=== PATIENT | male | born 1985 | race Two or more races ===

== ENCOUNTER 2023-08-08 16:50 | Emergency (ER) | payer BC ==
[2023-08-08 16:55] VITALS: BP 127/84; PULSE 79; RESP 18; TEMP 98; BMI 42.1
[2023-08-08] MEDS ORDERED: LIDOCAINE VISCOUS 2% ORAL/TOP 15 ML UNIT-DOSE CUP MM ONE (18:21)
[2023-08-08] MEDS ORDERED: ACETAMINOPHEN 500 MG TABLET (FP) PO ONE (18:21)
[2023-08-08] MEDS ORDERED: AMOX TR/POT CLAV 875MG/125MG TABLETS (FP) PO ONE (18:21)
[2023-08-08] MEDS ORDERED: AMOX TR/POT CLAV 875MG/125MG TABLETS (FP) ONE (18:24)
[2023-08-08] MEDS ORDERED: ACETAMINOPHEN 500 MG TABLET (FP) ONE (18:24)
== END 2023-08-08 19:03 | disposition home or self-care (01) ==
LOC: JER 16:50 → JERFT 16:50
DX: K05.10 Chronic gingivitis, plaque induced (principal); K06.9 Disorder of gingiva and edentulous alveolar ridge, unspecified
CPT/HCPCS: 99283-25

== ENCOUNTER 2023-10-07 13:44 | Emergency (ER) | payer BC ==
[2023-10-07 14:10] VITALS: BP 113/75; PULSE 69; RESP 18; TEMP 97.3; BMI 41.6
[2023-10-07] MEDS ORDERED: predniSONE 20 MG TABLET (UD) PO ONE (14:39)
[2023-10-07] MEDS ORDERED: CYCLOBENZAPRINE HCL 10 MG TABLET (FP) PO ONE (14:39)
[2023-10-07] MEDS ORDERED: CYCLOBENZAPRINE HCL 10 MG TABLET (FP) ONE (14:49)
[2023-10-07] MEDS ORDERED: predniSONE 10 MG TABLET (UD) ONE (14:49)
[2023-10-07] MEDS ORDERED: predniSONE 20 MG TABLET (UD) ONE (14:49)
== END 2023-10-07 16:59 | disposition home or self-care (01) ==
LOC: JERFT 13:44
DX: M54.50 Low back pain, unspecified (principal); M79.605 Pain in left leg; M51.36 Other intervertebral disc degeneration, lumbar region
CPT/HCPCS: 72131-TC; 99284-25

== ENCOUNTER 2024-03-28 20:03 | Inpatient (IN) | payer BC ==
[2024-03-28] MEDS ORDERED: morphine SULFATE 4 MG/ML VIAL ONE ×3 (21:17→23:42)
[2024-03-28 21:30] LABS: BASO % 0.5 % (0-2.0); EOS % 0.8 % (0-4.5); HEMATOCRIT 44.3 % (35.4-49); HEMOGLOBIN 14.7 GM/dL (11.7-16.9); LYMPH % 23.8 % (8-40); MCH 25.7 pg (25.7-33.7); MCHC 33.2 g/dl (32.0-35.9); MEAN CELL VOLUME 77.5 fl (80-96); MEAN PLT VOLUME 7.4 fl (7.5-11.1); MONO % 5.5 % (3.8-10.2); NEUT % 69.4 % (42.8-82.8); PLATELET COUNT 226 10^3/uL (134-434); RBC 5.72 M/mm3 (4.00-5.60); RDW 14.8 % (11.9-15.9); WHITE BLOOD COUNT 8.7 K/mm3 (4.0-10.0)
[2024-03-28] MEDS: LACTATED RINGERS SOLUTION 1,000 ML/1,000 ML INFUS.BAG IV STA (21:32)
[2024-03-28 21:38] LABS: INR 1.12 (0.83-1.09); PROTHROMBIN TIME (PATIENT) 12.6 SEC (9.7-13.0)
[2024-03-28 21:41] LABS: ACTIVATED PTT 34.2 SECONDS (25.2-36.5)
[2024-03-28] MEDS: morphine SULFATE 4 MG/ML VIAL IVPUSH ONE (21:45)
[2024-03-28 21:50] LABS: POTASSIUM 4.3 mmol/L (3.5-5.1)
[2024-03-28 21:52] LABS: ALBUMIN 3.6 g/dl (3.4-5.0); BLOOD UREA NITROGEN 10.6 mg/dL (7-18); CALCIUM 9.1 mg/dL (8.5-10.1)
[2024-03-28 21:57] LABS: BILIRUBIN,TOTAL 0.3 mg/dL (0.2-1); TOT PROT 7.5 g/dl (6.4-8.2)
[2024-03-28 22:15] LABS: LACTIC ACID 2.3 mmol/L (0.4-2.0)
[2024-03-28] MEDS ORDERED: FAMOTIDINE 20 MG/50 ML IVPB 20 MG/50 ML MG IVPB ONE (23:42)
[2024-03-28] MEDS: morphine CARPU-JECT 4 MG/1 ML DISP.SYRIN IVPUSH ONE (23:49)
[2024-03-28] MEDS: FAMOTIDINE 20 MG/50 ML IVPB 20 MG/50 ML MG IVPB ONE (23:50)
[2024-03-29] MEDS ORDERED: PIPERACILLIN/TAZOB 4.5 GM 4.5 GM/100 ML BAG IVPB ONE (00:55)
[2024-03-29] MEDS: PIPERACILLIN/TAZOB 4.5 GM 4.5 GM in DEXTROSE 5%-WATER 100 ML IVPB ONE (01:02)
[2024-03-29] MEDS ORDERED: MORPHINE SULFATE 2 MG/ML SYRINGE IVPUSH PRN (01:34)
[2024-03-29] MEDS: LACTATED RINGERS SOLUTION 1,000 ML/1,000 ML INFUS.BAG IV SCH ×2 (02:02→18:55)
[2024-03-29] MEDS: MELATONIN 5 MG TABLETS PO PRN (02:04)
[2024-03-29] MEDS: PIPERACILLIN/TAZOB 3.375 GM 3.375 GM in DEXTROSE 5%-WATER - 50 ML IVPB SCH ×2 (02:04→18:05)
[2024-03-29] MEDS ORDERED: morphine SULFATE 4 MG/ML VIAL ONE (02:07)
[2024-03-29] MEDS ORDERED: MELATONIN 5 MG TABLETS ONE (02:08)
[2024-03-29] MEDS ORDERED: PIPERACILLIN/TAZOB 3.375 GM 3.375 GM/50 ML BAG IVPB ONE (02:08)
[2024-03-29] MEDS: morphine SULFATE 4 MG/ML VIAL IVPUSH ONE (02:20)
[2024-03-29 03:02] VITALS: BMI 41.9
[2024-03-29] MEDS: busPIRone HCL 5 MG TABLET PO SCH (09:25)
[2024-03-29] MEDS: lamoTRIgine 100 MG TABLET PO SCH (09:26)
[2024-03-29 09:29] LABS: INR 1.23 (0.83-1.09); PROTHROMBIN TIME (PATIENT) 14.1 SEC (9.7-13.0)
[2024-03-29 09:41] LABS: HEMATOCRIT 42.3 % (35.4-49); HEMOGLOBIN 13.9 GM/dL (11.7-16.9); MCH 25.3 pg (25.7-33.7); MCHC 32.7 g/dl (32.0-35.9); MEAN CELL VOLUME 77.2 fl (80-96); MEAN PLT VOLUME 7.9 fl (7.5-11.1); PLATELET COUNT 216 10^3/uL (134-434); RBC 5.48 M/mm3 (4.00-5.60); RDW 14.8 % (11.9-15.9); WHITE BLOOD COUNT 14.9 K/mm3 (4.0-10.0)
[2024-03-29 09:48] LABS: POTASSIUM 4.4 mmol/L (3.5-5.1)
[2024-03-29 09:54] LABS: LACTIC ACID 2.3 mmol/L (0.4-2.0)
[2024-03-29 10:03] LABS: ALBUMIN 3.4 g/dl (3.4-5.0); BLOOD UREA NITROGEN 8.6 mg/dL (7-18)
[2024-03-29 10:07] LABS: BILIRUBIN,TOTAL 0.7 mg/dL (0.2-1); TOT PROT 6.8 g/dl (6.4-8.2)
[2024-03-29] MEDS: MIDODRINE HCL 5 MG TABLET PO SCH ×2 (12:52→19:29)
[2024-03-29] MEDS: LURASIDONE HCL 20 MG TABLET PO ONE (12:59)
[2024-03-29] MEDS: PATIENT'S OWN MEDICATION (NON-FORMULARY) (Lurasidone Hcl [Latuda] 60 MG Tablet) PO SCH (14:00)
[2024-03-29] MEDS ORDERED: ONDANSETRON 4 MG/2 ML VIAL IVPUSH PRN ×2 (15:35→17:30)
[2024-03-29] MEDS ORDERED: MIDAZOLAM HCL 2 MG/2 ML SINGLE DOSE VIAL ONE (15:36)
[2024-03-29] MEDS ORDERED: ROCURONIUM BROMIDE 50 MG/5 ML SYRINGE ONE ×2 (15:36→16:30)
[2024-03-29] MEDS ORDERED: PROPOFOL 20 ML ONE ×2 (15:36)
[2024-03-29] MEDS ORDERED: PIPERACILLIN/TAZOBACTAM 3.375 GM VIAL IVPB ONE (16:23)
[2024-03-29] MEDS ORDERED: HYDROmorphone HCl 2 MG/ML VIAL ONE (16:32)
[2024-03-29] MEDS: BUPIVACAINE HCL/PF 0.5% (5 MG/ML) 30 ML VIAL IJ ONE (16:40)
[2024-03-29] MEDS ORDERED: SUGAMMADEX SODIUM 200 MG/2 ML VIAL ONE ×3 (16:51→17:13)
[2024-03-29] MEDS: FLUoxetine HCL 10 MG CAPSULE PO SCH (18:55)
[2024-03-29] MEDS: LACTATED RINGERS SOLUTION 1,000 ML IV SCH ×2 (18:56)
[2024-03-29] MEDS: oxyCODONE HCL 5 MG TABLET PO PRN (20:23)
[2024-03-30] MEDS: PIPERACILLIN/TAZOB 3.375 GM 3.375 GM in DEXTROSE 5%-WATER - 50 ML IVPB SCH (01:28)
[2024-03-30] MEDS ORDERED: PIPERACILLIN/TAZOB 3.375 GM 3.375 GM in DEXTROSE 5%-WATER - 50 ML IVPB SCH ×3 (02:00)
[2024-03-30] MEDS: KETOROLAC TROMETHAMINE 15 MG/ML VIAL IVPUSH PRN (02:19)
[2024-03-30 08:57] LABS: BASO % 0.3 % (0-2.0); HEMATOCRIT 41.6 % (35.4-49); HEMOGLOBIN 13.6 GM/dL (11.7-16.9); LYMPH % 19.6 % (8-40); MCH 25.6 pg (25.7-33.7); MCHC 32.8 g/dl (32.0-35.9); MEAN CELL VOLUME 78.1 fl (80-96); MEAN PLT VOLUME 7.6 fl (7.5-11.1); MONO % 6.8 % (3.8-10.2); NEUT % 73.3 % (42.8-82.8); PLATELET COUNT 220 10^3/uL (134-434); RBC 5.33 M/mm3 (4.00-5.60); RDW 14.8 % (11.9-15.9); WHITE BLOOD COUNT 8.3 K/mm3 (4.0-10.0)
[2024-03-30] MEDS ORDERED: ACETAMINOPHEN 325 MG TABLET (FP) PO PRN (09:07)
[2024-03-30] MEDS: lamoTRIgine 100 MG TABLET PO SCH (09:08)
[2024-03-30] MEDS ORDERED: IBUPROFEN 600 MG TABLET (FP) PO PRN (09:08)
[2024-03-30] MEDS: busPIRone HCL 5 MG TABLET PO SCH (09:08)
[2024-03-30] MEDS: LURASIDONE HCL 40 MG TABLET PO SCH (09:08)
[2024-03-30] MEDS: FLUoxetine HCL 10 MG CAPSULE PO SCH (09:08)
[2024-03-30 09:16] LABS: POTASSIUM 4.8 mmol/L (3.5-5.1)
[2024-03-30 09:19] LABS: CALCIUM 8.9 mg/dL (8.5-10.1)
[2024-03-30 09:20] LABS: ALBUMIN 3.3 g/dl (3.4-5.0); BLOOD UREA NITROGEN 10.8 mg/dL (7-18)
[2024-03-30 09:24] LABS: BILIRUBIN,TOTAL 0.6 mg/dL (0.2-1)
[2024-03-30] MEDS ORDERED: LURASIDONE HCL 40 MG TABLET PO SCH (10:00)
[2024-03-30] MEDS: oxyCODONE HCL 5 MG TABLET PO PRN (16:08)
[2024-03-31] MEDS: MELATONIN 5 MG TABLETS PO PRN (02:04)
[2024-03-31 08:54] VITALS: BP 117/76; PULSE 94; RESP 20; TEMP 98.4
== END 2024-03-31 14:23 | disposition home or self-care (01) | DRG 225 ==
LOC: JER 20:03 → OBSVTOIN 03-29 00:44 → JERBED 03-29 00:44 → J6S 03-29 02:33
PROVIDERS: ADMIT Internal Medicine; ATTEND Internal Medicine
PROC: 0DTJ4ZZ Resection of Appendix, Percutaneous Endoscopic Approach (ICD-10-PCS; principal; 2024-03-29 14:30)
DX: K35.80 Unspecified acute appendicitis (principal); I69.351 Hemiplegia and hemiparesis following cerebral infarction affecting right dominant side; F25.9 Schizoaffective disorder, unspecified; E66.01 Morbid (severe) obesity due to excess calories; Z68.41 Body mass index [BMI] 40.0-44.9, adult; R04.2 Hemoptysis; F44.9 Dissociative and conversion disorder, unspecified; F32.9 Major depressive disorder, single episode, unspecified; I95.1 Orthostatic hypotension; F43.10 Post-traumatic stress disorder, unspecified; M54.9 Dorsalgia, unspecified; E78.5 Hyperlipidemia, unspecified; F42.9 Obsessive-compulsive disorder, unspecified
CPT/HCPCS: 36415; 70491-TC; 71046-TC-FY; 71260-TC; 74177-TC; 80048; 80053; 82272; 83605; 83690; 84484; 85025; 85027; 85610; 85730; 86850; 86900; 86901; 88304-TC; 93005; 93010; 93880-TC; 94760; 99285-25; Q9967